=== PATIENT | female | born 1985 | race Caucasian/White ===

== ENCOUNTER 2019-01-20 03:57 | Emergency (ER) | payer SELFPAY ==
[~2019-01-20] VITALS: Ht 165.1 cm; Wt 65.8 kg
--- NOTE | 2019-01-20 04:21 | PHYS DOC ---
Past Medical History Past Medical History: No Pertinent History Past Surgical History: No Surgical History Alcohol Use: None Drug Use: None Adult General Chief Complaint Chief Complaint: OVERDOSE HPI HPI 33-year-old female presents to emergency department with drug ingestion. Patient has a history of methamphetamine use, she is an addict. He states tonight she took a rock of unknown amount approximately 2 hours prior to her arrival. Patient denies chest pain, shortness breath, nausea, vomiting. Her reason for visit, she states she thought she was dying. However at this time she states she feels better. She denies headache or visual changes at this time. All other ROS negative unless documented in HPI Review of Systems Review of Systems See Above Current Medications Current Medications Current Medications Medications (Trade) Dose Ordered Sig/Matthew Start Time Stop Time Status Last Admin Dose Admin Lorazepam (Ativan) 0.5 mg 1X ONCE 01/20/19 05:00 01/20/19 05:02 DC 01/20/19 04:31 0.5 MG Allergies Allergies Allergies Coded Allergies Type Severity Reaction Last Updated Verified No Known Drug Allergies 01/20/19 No Physical Exam Physical Exam Constitutional: Well developed, well nourished, no acute distress, non-toxic appearance. [] Eyes: PERRLA, EOMI, conjunctiva normal, no discharge. [] Cardiovascular: Tachycardia, no murmur Lungs & Thorax: Bilateral breath sounds clear to auscultation [] Abdomen: Bowel sounds normal, soft, no tenderness, no masses, no pulsatile masses. [] Skin: Warm, dry, no erythema, no rash. [] Neurologic: Alert and oriented X 3, no focal deficits noted. [] Psychologic: Affect normal, judgement normal, mood normal. [] Current Patient Data Vital Signs Vital Signs Date Time Temp Pulse Resp B/P (MAP) Pulse Ox O2 Delivery O2 Flow Rate FiO2 01/20/19 04:03 98.1 111 17 149/81 (103) 99 Room Air 98.1 Lab Values Laboratory Tests Test 01/20/19 04:26 Urine Opiates Screen Neg (NEG) Urine Methadone Screen Neg (NEG) Urine Barbiturates Neg (NEG) Urine Phencyclidine Screen Neg (NEG) Urine Amphetamine/Methamphetamine Pos (NEG) Urine Benzodiazepines Screen Neg (NEG) Urine Cocaine Screen Neg (NEG) Urine Cannabinoids Screen Pos (NEG) Urine Ethyl Alcohol Neg (NEG) EKG EKG [] Radiology/Procedures Radiology/Procedures [] Course & Med Decision Making Course & Med Decision Making Pertinent Labs and Imaging studies reviewed. (See chart for details) []33-year-old female presents to emergency department with drug ingestion. Patient has a history of methamphetamine use, she is an addict. He states tonight she took a rock of unknown amount approximately 2 hours prior to her arrival. Patient denies chest pain, shortness breath, nausea, vomiting. Her reason for visit, she states she thought she was dying. However at this time she states she feels better. She denies headache or visual changes at this time. Vital signs reviewed, heart rate 110, afebrile. Patient provided with ativan 0.5mg po x 1. Remains afebrile without nausea/vomiting. HR improved to 90's to 100's. Recommend dc home. Recommend discontinuing meth use. Return precautions provided. Dragon Disclaimer Dragon Disclaimer This electronic medical record was generated, in whole or in part, using a voice recognition dictation system. Departure Departure Impression: Primary Impression: Methamphetamine abuse Disposition: 01 HOME, SELF-CARE Condition: STABLE Referrals: NO PCP (PCP) Patient Instructions: Alcohol and Drug Addiction, Finding Treatment Additional Instructions: Return to the ER with worsening symptoms, intractable pain, fever, altered mental status Recommend cessation of methamphetamine use GARETT JOSEPH MD Jan 20, 2019 04:21
[2019-01-20 04:43] LABS: BARBITURATES NEG (NEG); BENZODIAZEPINES NEG (NEG); CANNABINOIDS POS (NEG); COCAINE NEG (NEG); METHADONE NEG (NEG); OPIATES NEG (NEG); PHENCYCLIDINE NEG (NEG)
[2019-01-20 04:45] LABS: AMPHETAMINE/METHAMPHETAMINE POS (NEG)
[2019-01-20 04:58] VITALS: BP 129/69
[2019-01-20] MEDS ORDERED: LORazepam 0.5 MG TABLET PO ONE (05:00)
== END 2019-01-20 05:17 | disposition home or self-care (01) ==
LOC: ER 03:57
DX: F15.10 Other stimulant abuse, uncomplicated (principal)
CPT/HCPCS: 80307; 99283